=== PATIENT | male | born 1950 | race Caucasian/White ===

== ENCOUNTER → 2024-12-14 10:10 | Outpatient (BNVA) | payer MEDICARE, MEDICAID, SELFPAY | PROVIDERS: PCP Internal Medicine; Referring Provider Internal Medicine; Visit Provider Podiatrist | DX: L60.3 Nail dystrophy (principal); B35.1 Tinea unguium; R73.03 Prediabetes; L84 Corns and callosities | CPT/HCPCS: 99204 ==